=== PATIENT | female | born 1940 | race Caucasian/White ===

== ENCOUNTER 2017-07-31 20:01 | Observation (INO) | payer MEDICARE ==
[2017-08-01] MEDS ORDERED: Oseltamivir CAP* 75 MG PO SCH (03:41)
[2017-08-01] MEDS ORDERED: Mouth Piece, Nicotine* 1 EACH CARTRIDGE INH PRN (03:47)
[2017-08-01] MEDS ORDERED: Nicotine Inhaler* 10 MG AMP INH PRN (03:47)
[2017-08-01] MEDS ORDERED: Albuterol 2.5 MG/3 ML NEB.SOL* (0.083%) INH PRN (04:07)
[2017-08-01] MEDS: NS 0.9% 1000 ML* 1,000 ML IV SCH (05:02)
[2017-08-01] MEDS: Heparin VIAL(*) 5000 UNITS/ML VIAL (FIVE THOUSAND) SUBCUT SCH ×3 (05:31→20:39)
[2017-08-01 08:06] LABS: ABS Basophils 0 10^3/ul (0-0.2); ABS Eosinophils 0 10^3/ul (0-0.6); ABS Lymphocytes 0.8 10^3/ul (1.0-4.8); ABS Monocytes 0.4 10^3/ul (0-0.8); ABS Neutrophils 4.5 10^3/ul (1.5-7.7); ABS Nucleated RBC 0 10^3/ul; Eosinophil % 0.1 % (0-6); Hematocrit 38 % (35-47); Hemoglobin 12.9 g/dl (12.0-16.0); Lymphocyte % 13.3 % (25-47); Mean Corpuscular HGB Conc 34 g/dl (31-36); Mean Corpuscular Hemoglobin 31 pg (27-31); Mean Corpuscular Volume 90 fL (80-97); Mean Platelet Volume 10 um3 (7.4-10.4); Nucleated Red Blood Cells % 0; Platelet Count 167 10^3/ul (150-450); Red Blood Count 4.22 10^6/ul (4.0-5.4); Red Cell Distribution Width 14 % (10.5-15); White Blood Count 5.6 10^3/ul (3.5-10.8)
[2017-08-01 08:19] LABS: EGFR Non-African American 74.7 (>60)
[2017-08-01] MEDS ORDERED: Oseltamivir CAP* 30 MG CAP PO SCH (09:00)
[2017-08-01] MEDS ORDERED: CHOLECALCIFEROL 2000 UNIT PO SCH (09:00)
[2017-08-01] MEDS: Hydroxychloroquine TAB* 200 MG PO SCH ×2 (09:56→20:38)
[2017-08-01] MEDS: predniSONE TAB* 1 MG PO SCH (09:56)
[2017-08-01] MEDS: Clopidogrel TAB* 75 MG PO SCH (09:56)
[2017-08-01] MEDS: Nystatin SUSPENSION* 100000 UNITS/ML 5 ML UDC PO SCH ×4 (09:56→20:38)
[2017-08-01] MEDS: Cholecalciferol TAB* 1000 UNITS PO SCH (09:56)
[2017-08-01] MEDS: Donepezil TAB* 5 MG PO SCH (09:56)
[2017-08-01] MEDS ORDERED: Azithromycin IV(*) 500 MG in NS 0.9% 250 ML* 250 ML IVPB SCH (13:00)
[2017-08-01] MEDS ORDERED: Levofloxacin 750 MG IVPREMIX(* 750 MG/150 ML BAG IVPB SCH (13:30)
--- NOTE | 2017-08-01 14:55 | PN ---
Subjective Date of Service: 08/01/17 Interval History: Patient in very good spirits today. Patient denies SOB, F/C, Abdominal Pain, diarrhea or other pain. ROS conducted, but patient seems to deny everything including SOB with obvious increased WOB. Talked with family about plan for care at home and they stated that patient is very resistant to leaving her home but that they would be willing to have her move in with them if needed and would be interested in her having more help where she is now. Family History: Unchanged from Admission Social History: Unchanged from Admission Past Medical History: Unchanged from Admission Objective Active Medications: Albuterol (Ventolin 2.5 Mg/3 Ml Neb.Lamar*) 2.5 mg INH Q4H PRN PRN Reason: SOB/WHEEZING Cholecalciferol (Vitamin D Tab*) 2,000 units PO DAILY [facility] Last Admin: 08/01/17 09:56 Dose: 2,000 units Clopidogrel Bisulfate (Plavix Tab*) 75 mg PO DAILY [facility] Last Admin: 08/01/17 09:56 Dose: 75 mg Device (Nicotine Mouth Piece*) 1 each INH .USE WITH NICOTROL PRN PRN Reason: CRAVING Donepezil HCl (Aricept Tab*) 10 mg PO DAILY [facility] Last Admin: 08/01/17 09:56 Dose: 10 mg Heparin Sodium (Porcine) (Heparin Vial(*)) 5,000 units SUBCUT Q8HR [facility] Last Admin: 08/01/17 13:55 Dose: 5,000 units Hydroxychloroquine Sulfate (Plaquenil Tab*) 200 mg PO BID [facility] Last Admin: 08/01/17 09:56 Dose: 200 mg Sodium Chloride (Ns 0.9% 1000 Ml*) 1,000 mls @ 100 mls/hr IV PER RATE [facility] Last Admin: 08/01/17 05:02 Dose: 100 mls/hr Levofloxacin/Dextrose (Levaquin 750 Mg Ivpremix(*)) 750 mg in 150 mls @ 100 mls /hr IVPB Q48H [facility] Last Admin: 08/01/17 13:56 Dose: 100 mls/hr Nicotine (Nicotine Inhaler*) 10 mg INH Q2H PRN PRN Reason: CRAVING Nystatin (Nystatin Suspension*) 500,000 units PO QID [facility] Stop: 08/08/17 03:58 Last Admin: 08/01/17 13:55 Dose: 500,000 units Oseltamivir Phosphate (Tamiflu Cap*) 30 mg PO BID [facility] Stop: 08/05/17 09:01 Prednisone (Deltasone Tab*) 1 mg PO DAILY [facility] Last Admin: 08/01/17 09:56 Dose: 1 mg Vital Signs - 8 hr 08/01/17 09:32 Respiratory 18 Rate Oxygen Devices in Use Now: None Appearance: Patient is a 77yo female who appears stated age, is emaciated, and is sitting in the bed with slightly increased WOB. Eyes: No Scleral Icterus, PERRLA Ears/Nose/Mouth/Throat: Clear Oropharnyx, Mucous Membranes Moist, - - Plaque consistent with thrush on posterior tongue. Neck: NL Appearance and Movements; NL JVP, Trachea Midline Respiratory: Symmetrical Chest Expansion and Respiratory Effort, - - Diminished throughout. Single expiratory wheeze in LLL. Prolonged expiratory phase. Cardiovascular: NL Sounds; No Murmurs; No JVD, RRR, No Edema Abdominal: NL Sounds; No Tenderness; No Distention, No Hepatosplenomegaly Lymphatic: No Cervical Adenopathy, No Inguinal Adenopathy Extremities: No Clubbing, Cyanosis Skin: No Rash or Ulcers, No Nodules or Sclerosis Neurological: NL Sensation, NL Muscle Strength and Tone, - - CN II-XII intact. A /O only to self. Result Diagrams: 08/01/17 07:36 08/01/17 07:36 Assess/Plan/Problems-Billing Assessment: Patient is a 76yo female with a PMH significant for End Stage COPD, ongoing tobacco abuse, Dementia, and Psoriatic arthritis who presents with 3 days of worsening confusion accompanied by URI symptoms and hypoxia who was transferred from [place] ED with the presumptive diagnosis of LLL pneumonia and Influenza. Patient is now saturating well on RA but it is unknown if patient's mental status and ability to care for herself has improved. - Patient Problems (1) Influenza Current Visit: Yes Status: Acute Code(s): J11.1 - FLU DUE TO UNIDENTIFIED INFLUENZA VIRUS W OTH RESP MANIFEST SNOMED Code(s): 2694771 Comment: It was reported by [facility] that patient had influenza but the accompanying paperwork states that the flu swab was negative. Will treat for influenza with tamiflu and have patient on droplet precautions. (2) Bacterial pneumonia Current Visit: Yes Status: Acute Code(s): J15.9 - UNSPECIFIED BACTERIAL PNEUMONIA SNOMED Code(s): 60885042 Comment: Patient reportedly has lobar consolidation on CXR from [place]. Patient has productive cough and had hypoxia. Patient has allergies to Cephalosporins and Azithromycin. Continue renally dosed levaquin. (3) COPD (chronic obstructive pulmonary disease) Current Visit: Yes Status: Acute Code(s): J44.9 - CHRONIC OBSTRUCTIVE PULMONARY DISEASE, UNSPECIFIED SNOMED Code(s): 30316357 Comment: End-Stage. Ongoing smoker 12-20 cigarettes a day. Not in exacerbation. No home inhalers. Albuterol PRN. (4) Dementia Current Visit: Yes Status: Acute Code(s): F03.90 - UNSPECIFIED DEMENTIA WITHOUT BEHAVIORAL DISTURBANCE SNOMED Code(s): 27308334 Comment: Patient has worsening confusion but now appears to be back to baseline. Alert and oriented only to self. Very pleasant. Concerns from family about ability to care for self. Possible need for placement. Would definitely benefit from VNS services at discharges. PT/OT ordered. (5) Psoriatic arthritis Current Visit: Yes Status: Acute Code(s): L40.50 - ARTHROPATHIC PSORIASIS, UNSPECIFIED SNOMED Code(s): 831265011 Comment: Continue plaquenil and prednisone. (6) HTN (hypertension) Current Visit: Yes Status: Acute Code(s): I10 - ESSENTIAL (PRIMARY) HYPERTENSION SNOMED Code(s): 48272885 Comment: Normotensive. On no home medications. (7) DVT prophylaxis Current Visit: Yes Status: Acute Code(s): HOW9075 - SNOMED Code(s): 279802797 Comment: Heparin SubQ. (8) Full code status Current Visit: Yes Status: Acute Code(s): Z78.9 - OTHER SPECIFIED HEALTH STATUS SNOMED Code(s): 147011831 Status and Disposition: Patient is admitted inpatient.
--- NOTE | 2017-08-01 15:02 | HP ---
C: Dr. Steele * HISTORY AND PHYSICAL: DATE OF ADMISSION: 08/01/17 PRIMARY CARE PROVIDER: Dr. Steele CHIEF COMPLAINT: Fever and cough. HISTORY OF PRESENT ILLNESS: Ms. Tamayo is a 76-year-old female who has a history of advanced COPD with ongoing tobacco abuse, hypertension, advanced dementia, psoriatic arthropathy, history of follicular large cell lymphoma, osteoporosis, and stage 3 chronic kidney disease who initially presented to the emergency room at [facility] with complaints of increased confusion. She additionally has been having mild fever and cough. The patient herself is really unable to provide any history due to her advanced dementia. All history was obtained from notes provided from [facility]. Per Dr. Steele's note, the patient's daughter stated that her mom has not been eating as much over the last two days. Additionally on the morning of presentation to [facility] (07/31/17), the patient was reportedly speaking nonsense. In the ER, Dr. Steele noted that the patient had a low grade fever , was mildly tachycardic and had a moist cough, but not bringing up any sputum. Ultimately the decision was made that the patient needed to be admitted for possible pneumonia and I was contacted for transfer to [facility] [place]. Prior to transfer I did request that a flu swab be sent. Reportedly the flu swab came back positive for influenza, but I did not clearly see this result in the paper work. PAST MEDICAL HISTORY: 1. COPD. 2. Hypertension. 3. Dementia without behavioral disturbance. 4. Psoriatic arthropathy. 5. Ongoing tobacco abuse. 6. History of follicular large cell lymphoma. 7. History of TIA. 8. Osteoporosis. 9. Chronic kidney disease - Stage 3. PAST SURGICAL HISTORY: 1. TAHBSO. 2. Lumpectomy of the right breast. 3. Cystoscopy x2. 4. Wrist surgery. 5. Resection of skin lymphoma. 6. Balloon dilation for postbulbar stenosis. MEDICATIONS: 1. Alendronate 70 mg p.o. weekly. 2. Plaquenil 200 mg p.o. twice daily. 3. Vitamin D3 of 2000 units p.o. daily. 4. Triamcinolone acetonide 0.5% cream applied topically twice daily to rash. 5. Folic acid 800 mcg p.o. daily. 6. Ibuprofen 200 mg p.o. 3 times daily p.r.n. pain. 7. Donepezil 10 mg p.o. q.h.s. 8. Prednisone 1 mg p.o. daily. 9. Plavix 75 mg p.o. daily. 10. Ziac 10/6.25 mg 1 tab p.o. daily. ALLERGIES: 1. CEFADROXIL. 2. METHYLPREDNISOLONE. 3. AZITHROMYCIN. FAMILY HISTORY: Mom at the age of 102. Father is also . Medical history is unknown as the patient is unable to tell me and this is not recorded in the note from her primary care provider. SOCIAL HISTORY: The patient is an active smoker smoking between 11 to 20 cigarettes per day. The patient does not drink alcohol. She is . REVIEW OF SYSTEMS: Negative for chest pain, shortness of breath, sputum production, difficulty with ambulation, abdominal pain, constipation, diarrhea, or nausea. Rest of the history the patient is unable to tell me. PHYSICAL EXAMINATION GENERAL: The patient is a well-developed, cachectic elderly female sitting in the bed in no acute distress. VITAL SIGNS: Blood pressure 140/61, pulse 82, respirations 18, temperature 98.0 , O2 sat 93% on room air. HEENT: Pupils are equal and round. Extraocular muscles are intact. There is arcus senilis bilaterally. Oropharynx is clear. Oral mucosa is somewhat dry, but there does appear to be thrush on the patient's tongue. There is no submandibular, cervical, or subclavicular adenopathy. Thyroid is not enlarged. No thyroid nodules noted. PULMONARY: The patient is barrel chested. Lungs are clear in the upper lobes. There are left greater than right crackles. CARDIAC: Normal S1 and S2. Regular rate and rhythm. I do not appreciate any murmurs. There is no lower extremity edema. ABDOMEN: Bowel sounds are present. Abdomen is soft, nontender, and nondistended. MUSCULOSKELETAL: There is no cyanosis or clubbing at the digits. There is full active range of motion of all 4 extremities. SKIN: Warm and dry. I do not appreciate any rashes. NEUROLOGIC: Cranial nerves II through XII are grossly intact. Sensation is intact to light touch throughout. Strength is 5/5 and symmetric in both upper and lower extremities bilaterally. PSYCH: The patient is alert. She is pleasantly confused. LABORATORY DATA: Sodium 136, potassium 4.4, chloride 101, CO2 of 27, BUN 24, creatinine 1.1, glucose 126, lactic acid 1, calcium 8.9, bilirubin 0.9, AST 37, ALT 18, alkaline phosphatase 52, albumin 2.7. WBC 7.97, hemoglobin 13.5, hematocrit 39.6, and platelets 170. Urinalysis reveals concentrated urine of specific gravity of 1.024, 2+ protein, 3+ blood. Otherwise evidence of volume depletion by granular casts being identified. Chest x-ray has not been uploaded to the system. ASSESSMENT AND PLAN: Ms. Tamayo is a 76-year-old female with a history of advanced dementia, advanced chronic obstructive pulmonary disease who has been eating poorly over the last couple of days, had low grade fever, cough, and increased confusion, who sent from [facility] to [facility] after being identified to be positive for influenza. 1. Influenza. The patient will be started on Tamiflu 75 mg p.o. twice daily. The patient will have a 5-day course of therapy. At this point, I am going to hold off on initiating IV antibiotic therapy as it is unclear that the patient has a true pneumonia. I will send procalcitonin. The patient will receive normal saline at 100 mL per hour. Repeat blood work will be obtained this morning. 2. Chronic obstructive pulmonary disease. At this point, there are no signs of exacerbation. The patient will continue on prednisone as she is only on 1 mg daily, which is likely for her psoriatic arthritis. I will add albuterol nebulizer treatment as needed for wheezing. 3. Dementia. We will continue Aricept and reorient as needed. 4. Stage 3 chronic kidney disease. The patient's creatinine is at baseline. 5. Psoriatic arthropathy. I will continue the patient's Plaquenil and prednisone. 6. DVT prophylaxis: According to the Adult Thrombosis Prophylaxis Risk Factor Assessment Guide, the patient has a total risk factor score of 3, making her high risk. She will be placed on heparin 5000 units subcutaneous q. 8 hours. 7. Code status is full for now, as the patient is unable to grasp the concept of this question; I do not think she answered appropriately. TIME SPENT: 65 minutes spent admitting this patient. [id number]/[facility] #: [id number] [facility]
[2017-08-01] MEDS: Oseltamivir CAP* 30 MG CAP PO SCH (20:38)
[2017-08-02] MEDS: Heparin VIAL(*) 5000 UNITS/ML VIAL (FIVE THOUSAND) SUBCUT SCH (06:53)
[2017-08-02 08:49] VITALS: BP 146/59
[2017-08-02 09:01] LABS: ABS Basophils 0 10^3/ul (0-0.2); ABS Eosinophils 0 10^3/ul (0-0.6); ABS Lymphocytes 0.6 10^3/ul (1.0-4.8); ABS Monocytes 0.4 10^3/ul (0-0.8); ABS Neutrophils 3.1 10^3/ul (1.5-7.7); ABS Nucleated RBC 0 10^3/ul; Eosinophil % 0.2 % (0-6); Hematocrit 37 % (35-47); Hemoglobin 12.5 g/dl (12.0-16.0); Lymphocyte % 14.6 % (25-47); Mean Corpuscular HGB Conc 34 g/dl (31-36); Mean Corpuscular Hemoglobin 31 pg (27-31); Mean Corpuscular Volume 89 fL (80-97); Mean Platelet Volume 9 um3 (7.4-10.4); Nucleated Red Blood Cells % 0.1; Platelet Count 211 10^3/ul (150-450); Red Cell Distribution Width 14 % (10.5-15); White Blood Count 4.1 10^3/ul (3.5-10.8)
[2017-08-02 09:13] LABS: EGFR Non-African American 74.7 (>60)
[2017-08-02] MEDS: NS 0.9% 1000 ML* 1,000 ML IV SCH (09:29)
[2017-08-02] MEDS: Hydroxychloroquine TAB* 200 MG PO SCH (09:30)
[2017-08-02] MEDS: Cholecalciferol TAB* 1000 UNITS PO SCH (09:30)
[2017-08-02] MEDS: Oseltamivir CAP* 30 MG CAP PO SCH (09:30)
[2017-08-02] MEDS: Clopidogrel TAB* 75 MG PO SCH (09:31)
[2017-08-02] MEDS: Nystatin SUSPENSION* 100000 UNITS/ML 5 ML UDC PO SCH ×2 (09:31→12:16)
[2017-08-02] MEDS: Donepezil TAB* 5 MG PO SCH (09:31)
[2017-08-02] MEDS: predniSONE TAB* 1 MG PO SCH (09:31)
[2017-08-02] MEDS ORDERED: Magnesium Sulfate IV* 3 GM in NS 0.9% 100 ML* 100 ML IVPB ONE (11:31)
[2017-08-02] MEDS ORDERED: Magnesium Sulfate 1 GM IV* 1 GM/100 ML BAG IV ONE (12:00)
[2017-08-02] MEDS ORDERED: Magnesium Sulfate 2 GM IV IVPB ONE (12:00)
--- NOTE | 2017-08-03 06:04 | DS ---
CC: Dr. Leonides Steele * DISCHARGE SUMMARY: DATE OF ADMISSION: 08/01/17 DATE OF DISCHARGE: 08/02/17 PRIMARY CARE PROVIDER: Dr. Leonides Steele. MY ATTENDING WHILE IN THE HOSPITAL: Maddie Holman MD * (DICTATED BY KODAK SANCHEZ) PRIMARY DISCHARGE DIAGNOSES: 1. Influenza A probable. 2. Left lower lobe bacterial pneumonia. 3. Altered mental status. SECONDARY DISCHARGE DIAGNOSIS: 1. Advanced dementia. 2. End-stage chronic obstructive pulmonary disease. 3. Psoriatic arthropathy. 4. Hypertension. 5. History of follicular large cell lymphoma. 6. History of transient ischemic attack. 7. Osteoporosis. 8. Chronic kidney disease, stage 3. STUDIES DONE WHILE IN THE HOSPITAL: None. Please see transfer materials from [facility]. MEDICATIONS AT DISCHARGE: 1. Plavix 75 mg p.o. daily. 2. Ziac 10/6.25 mg 1 tablet p.o. daily. 3. Prednisone 1 mg p.o. daily. 4. Ibuprofen 200 mg p.o. q.8 hours as needed. 5. Donepezil 10 mg p.o. daily. 6. Fosamax 70 mg p.o. weekly. 7. Triamcinolone 0.5% topical b.i.d. as needed. 8. Folic acid 0.8 mg p.o. daily. 9. Plaquenil 200 mg p.o. b.i.d. 10. Vitamin D3, 2000 units p.o. daily. 11. Albuterol HFA inhaler 1 to 2 puffs inhalation q.4 hours as needed for shortness of breath or wheezing. 12. Levofloxacin 750 mg p.o. every other day x4. 13. Oseltamivir 30 mg p.o. b.i.d., x6. New medications on discharge: Albuterol, levofloxacin, and oseltamivir. Medications discontinued on discharge: None. HOSPITAL COURSE: This is a brief summary of the patient's presentation. For more detail, please see history and physical from Dr. Christa Grant from . In brief, this patient is a 76-year-old female with a past medical history significant for the above, who presented as a transfer from the [facility] after she was found by her family with mild fever, cough, and increased confusion. The patient was unable to take care of herself at home due to her confusion and was acting radically which is significantly abnormal from her baseline. The patient had a chest x-ray which showed left lower lobe infiltrate. The patient had a flu swab which was represented in the transfer paperwork as negative, but was reported by the nurse as positive. During the transfer, the patient was hypoxic at [facility], but did not require oxygen when transferred to this facility. The patient had no vital sign abnormalities while at [facility] including fevers, hypoxia, tachycardia, or hyper or hypotension. The patient started on Tamiflu and levofloxacin. The patient had a procalcitonin level of 0.4 indicating probable bacterial pneumonia. The patient was much more lucid and back to her baseline in the evening of 08/01/17 per the family. The patient expressed the repeated desire to go home; however, family expressed reservations about her ability to take care of herself. The patient appeared clinically dehydrated and was given fluids. The patient was positive approximately 3 L from her treatment at [facility]. The patient had a urinalysis which showed hyaline casts and had an elevated BUN and creatinine ratio on admission indicating dehydration. The patient was discharged back home with the support of her family and with visiting nurse services to be started on 08/04/17. PHYSICAL EXAM ON DAY OF DISCHARGE: General: The patient is a 76-year-old female who appears stated age and sitting comfortably in bed, in no acute distress. Vital Signs: At the time of discharge, temperature 98, pulse rate 84 , respiratory rate 20, oxygen saturation 93% on room air, blood pressure 124/ 65. Neck: Supple, nontender. No lymphadenopathy. No carotid bruit auscultated. Cardiac: Regular rate and rhythm. No clicks, murmurs, gallops, or rubs. Pulses 2+ in bilateral dorsalis pedis, posterior tibialis, and radial areas. No edema. Respiratory: Clear to auscultation bilaterally. Diminished throughout. Good air exchange bilateral. Abdomen: Soft, nontender, nondistended. Bowel sounds present, normoactive in all 4 quadrants. No abdominal bruits auscultated. Genitourinary: No suprapubic tenderness or CVA tenderness. Skin: The patient has a somewhat rivera complexion. No other rash. Neuro: The patient is alert and oriented only to herself. The patient does not know where she is, why she is in the hospital, what day it is, what year it is. The patient asked the same questions repeatedly. No focal neurological deficits. Psychiatric: The patient is pleasant and cooperative. LABORATORY DATA ON DAY OF DISCHARGE: White blood cell count 4.1, hemoglobin 12.5, platelet count 211,000, lymphocytes percentage 14.6, absolute lymphocytes 0.6. Sodium 139, potassium 3.9, chloride 104, carbon dioxide 27, anion gap 8, BUN 14, creatinine 0.75, glucose 98, calcium 8.6, magnesium 1.6. Other laboratory data of note from admission, procalcitonin 0.4 on 08/01/17. DISCHARGE PLAN: The patient will be discharged to home on Levaquin and oseltamivir. The patient will have increased support from her family around the time of discharge to ensure that she continues to improve and does not become repeatedly dehydrated or more confused. The patient will be initiated with visiting nurse services on 08/04/17 for increased support at home. It is also discussed with the family to initiate Meals On Wheels as the patient eats well when she is presented with food, but does not have the initiative to make food for herself. The patient weighs only 87 pounds in the hospital. The patient does not need oxygen at this time. However, the patient was given a rescue inhaler as she had no other rescue medications for her advanced COPD. The patient should follow up with her primary care provider within 1 week to ensure adequate recovery from this acute illness and for general medical management. The patient should return to the hospital for chest pain, significantly increased shortness of breath or other alarming symptoms. The patient should engage in activity as tolerated and have a regular unrestricted diet with a focus on high calorie foods. TIME SPENT: Approximately 60 minutes was spent on this discharge, 30 of which was spent [id number]-faaf with the patient obtaining history and physical and discussing treatment plan. KODAK SANCHEZ [id number]/[facility] #: [id number] [facility]
== END 2017-08-02 13:45 | disposition home or self-care (01) ==
LOC: MED 08-01 01:44 → INTOOBSV 08-01 01:44
PROVIDERS: ADMIT Hospitalist; ATTEND Internal Medicine
DX: J11.1 Influenza due to unidentified influenza virus with other respiratory manifestations (principal); J44.9 Chronic obstructive pulmonary disease, unspecified; N18.3 Chronic kidney disease, stage 3 (moderate); F03.90 Unspecified dementia, unspecified severity, without behavioral disturbance, psychotic disturbance, mood disturbance, and anxiety; R50.9 Fever, unspecified; Z86.73 Personal history of transient ischemic attack (TIA), and cerebral infarction without residual deficits; R05 Cough; Z87.09 Personal history of other diseases of the respiratory system; Z86.79 Personal history of other diseases of the circulatory system; L40.50 Arthropathic psoriasis, unspecified; F17.210 Nicotine dependence, cigarettes, uncomplicated
CPT/HCPCS: 36415; 80048; 83735; 84145; 85025; 99406; A9270-GY; G0378; J1644; J3475